=== PATIENT | female | born 1960 | race Caucasian/White ===

== ENCOUNTER 2023-02-17 12:37 | Emergency (ER) | payer SELFPAY ==
[2023-02-17] MEDS ORDERED: SODIUM CHLORIDE 0.9% 1,000 ML IV STA (13:02)
[2023-02-17 13:14] LABS: BASOPHILS % (AUTO) 0.7 %; EOSINOPHILS # (AUTO) 0.1 10^3/uL (0.0-0.7); EOSINOPHILS % (AUTO) 2.3 %; HCT - HEMATOCRIT 44.7 % (37.0-47.0); HGB - HEMOGLOBIN 14.6 g/dL (12.0-16.0); LYMPHOCYTES # (AUTO) 1.5 10^3/uL (1.5-3.5); LYMPHOCYTES % (AUTO) 25.5 %; MEAN CORPUSCULAR HGB CONC 32.7 g/dL (32.0-36.0); MEAN CORPUSCULAR VOLUME 94.9 fL (81.0-99.0); MEAN PLATELET VOLUME 9.3 fL (7.9-10.8); MONOCYTES # (AUTO) 0.3 10^3/uL (0.0-1.0); MONOCYTES % (AUTO) 4.8 %; NEUTROPHILS % (AUTO) 66.5 %; PLT - PLATELET COUNT 273 10^3/uL (130-450); RED BLOOD COUNT 4.71 10^6/uL (4.20-5.40); RED CELL DISTRIBUTION WIDTH 13.2 % (12.0-15.0); WHITE BLOOD COUNT 6.1 x10^3/uL (4.8-10.8)
--- NOTE | 2023-02-17 13:19 | ED Physician Documentation ---
History of Present Illness - Stated complaint Stated Complaint: SOA,DIZZINESS,SHAKEY,SWEATS - Chief complaint Chief Complaint: Neuro - History obtained from History obtained from: Patient - Additonal information Additional information: Patient is a 62-year-old female with no significant prior medical history presenting for evaluation of feeling intermittently lightheaded for the past 2 days with clammy hands and at times feeling short of air. She denies any syncopal episodes but describes the dizziness as feeling like she is going to faint. Denies chest pain. No fever or cough. No abdominal symptoms. She has had some tingling sensation in both hands. She has not had anything to eat today which she states is usual for her. Does not take any medications.No falls or injuries. Review of Systems Constitutional: denies: Fever Cardiac: denies: Chest pain / pressure Respiratory: denies: Dyspnea GI: denies: Abdominal Pain Neurologic: denies: Headache PD PAST MEDICAL HISTORY - Past Medical History Past Medical History: No - Past Surgical History Past Surgical History: No - Allergies Allergies/Adverse Reactions: Allergies Allergy/AdvReac Type Severity Reaction Status Date / Time amoxicillin Allergy Hives Verified 02/17/23 12:51 - Social History Does the pt smoke?: Yes Smoking Status: Current every day smoker Does the pt drink ETOH?: Yes ETOH Use: Beer Does the pt have substance abuse?: Yes Substance Use and Type: Marijuana - Immunizations Immunizations are current?: Yes - POLST Patient has POLST: No PD ED PE NORMAL - General General: Alert and oriented X 3, No acute distress, Well developed/nourished - HEENT HEENT: Atraumatic - Neck Neck: Supple, no meningeal sign - Cardiac Cardiac: RRR, No murmur - Respiratory Respiratory: No respiratory distress, Clear bilaterally - Abdomen Abdomen: Soft, Non tender, Non distended - Derm Derm: Warm and dry - Extremities Extremities: No edema, No calf tenderness / cord - Neuro Neuro: Alert and oriented X 3, 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, No motor deficit, No sensory deficit, Normal speech Eye Opening: Spontaneous Motor: Obeys Commands Verbal: Oriented GCS Score: 15 Results - Vitals Vitals: Vital Signs - 24 hr 02/17/23 02/17/23 02/17/23 12:46 13:40 14:39 Temperature 36.5 C Heart Rate 77 67 Heart Rate [ 85 Sitting] Heart Rate [ 78 Standing] Heart Rate [ 75 Supine] Respiratory 16 18 Rate Blood Pressure 187/106 H 177/79 H Blood Pressure 190/90 H [Sitting] Blood Pressure 189/100 H [Standing] Blood Pressure 151/85 H [Supine] O2 Saturation 100 99 Oxygen O2 Source Room air - EKG (time done) 1355 EKG releavant findings:: EKG personally interpreted by author of this note. Relevant findings are: Rate 63, normal sinus rhythm, no STEMI, QTc 451 - Labs Labs: Laboratory Tests 02/17/23 02/17/23 13:08 13:08 WBC 6.1 RBC 4.71 Hgb 14.6 Hct 44.7 MCV 94.9 MCH 31.0 MCHC 32.7 RDW 13.2 Plt Count 273 MPV 9.3 Neut # (Auto) 4.0 Lymph # (Auto) 1.5 [place] # (Auto) 0.3 Eos # (Auto) 0.1 Baso # (Auto) 0.0 Absolute Nucleated RBC 0.00 Nucleated RBC % 0.0 Sodium 135 Potassium 3.5 Chloride 101 Carbon Dioxide 27 Anion Gap 7.0 BUN 7 Creatinine 0.5 L Estimated GFR (MDRD) 126 Glucose 109 H Calcium 9.7 Total Bilirubin 0.6 AST 13 ALT 11 Alkaline Phosphatase 66 Total Protein 7.1 Albumin 4.6 Globulin 2.5 Albumin/Globulin Ratio 1.8 Lipase < 10 L PD Medical Decision Making - ED course Complexity details: reviewed results, re-evaluated patient, d/w patient ED course: Patient with feelings of near syncope and at times shortness of air. She is feeling better here Still with some lightheadedness. Her blood pressure is elevated. Normal neuro exam. No chest pain to suggest ACS. EKG is nonischemic and a normal rhythm. CBC, chemistry, chest x-ray were obtained and reviewed and without significant findings. Patient received IV fluids and is feeling much better. Her orthostatics are negative. Her blood pressure has remained quite elevated but at times she has also had improved blood pressures around 150. As she is feeling better I do not think she requires emergent initiation of medications for her blood pressure and would recommend close follow-up with primary care. Patient is counseled on concerning symptoms to return for.. Departure - Departure Disposition: 01 Home, Self Care Clinical Impression: Near syncope, Elevated blood pressure reading Condition: Stable Instructions: ED Near Syncope Unkn Comments: Your EKG and labs are reassuring today. Your chest x-ray also does not show any significant abnormalities. It is also reassuring that you are feeling better here after IV fluids. Your blood pressure at times has been elevated and this could potentially be a cause for your symptoms. However at other times it has been better and so I am hesitant to start you on a blood pressure medication quite yet. Therefore I do recommend close follow-up with your primary care doctor to recheck your blood pressure as well as discuss your symptoms today to see if you need to be put on any medications or further testing. Please continue to stay hydrated. Return to the emergency department if you develop any worsening symptoms. Forms: PCP List Discharge Date/Time: 02/17/23 15:28
--- NOTE | 2023-02-17 13:25 | XRAY Report ---
PROCEDURE: Chest 1 View X-Ray INDICATIONS: SOA TECHNIQUE: One view of the chest was acquired. COMPARISON: None. FINDINGS: Surgical changes and devices: None. Lungs and pleura: Mild bibasilar opacities. Low lung volumes. No pleural effusions. Mediastinum: Normal heart size Bones and chest wall: Degenerative changes. IMPRESSION: Mild bibasilar opacities could represent atelectasis or early airspace disease. Consider future imagi ng surveillance to assess for resolution. Limited portable single view radiograph with low lung volumes. Reviewed by: Wilmar Villanueva MD on 02/17/2023 1:24 PM PST Approved by: Wilmar Villanueva MD on 02/17/2023 1:24 PM PST Station ID: [id number]
[2023-02-17 13:27] LABS: ALBUMIN 4.6 g/dL (3.2-5.5); ALBUMIN/GLOBULIN RATIO 1.8 (1.0-2.2); ALKALINE PHOSPHATASE 66 IU/L (42-121); ALT ALANINE AMINOTRANSFERASE 11 IU/L (10-60); AST ASPARTATE AMINOTRANSFERASE 13 IU/L (10-42); BILIRUBIN,TOTAL 0.6 mg/dL (0.2-1.0); BUN - BLOOD UREA NITROGEN 7 mg/dL (6-20); CALCIUM 9.7 mg/dL (8.5-10.3); CARBON DIOXIDE - CO2 27 mmol/L (21-32); CHLORIDE 101 mmol/L (101-111); CREATININE 0.5 mg/dL (0.6-1.3); GFR - MDRD 126 (>89); GLUCOSE 109 mg/dL (74-104); POTASSIUM 3.5 mmol/L (3.5-4.5); SODIUM 135 mmol/L (135-145); TOTAL PROTEIN 7.1 g/dL (6.4-8.9)
[2023-02-17 13:31] LABS: LIPASE < 10 U/L (11-82)
[2023-02-17 13:43] VITALS: O2SAT 99
[2023-02-17 14:44] VITALS: BP 151/85
== END 2023-02-17 15:28 | disposition home or self-care (01) ==
LOC: ED 12:37
DX: R55 Syncope and collapse (principal); R03.0 Elevated blood-pressure reading, without diagnosis of hypertension; F17.200 Nicotine dependence, unspecified, uncomplicated
CPT/HCPCS: 36415; 80053; 83690; 85025; 93005; 99283; 99284